=== PATIENT | female | born 1945 | race Caucasian/White ===

== ENCOUNTER 2016-11-25 18:37 | Emergency (ER) | payer BC, OTHER, MEDICARE ==
[~2016-11-25 18:37] MED LIST: ALBUTEROL HFA6.7 GM IH; ALBUTEROL S3 ML/VIAL NEB; ALBUTEROL2.5 MG/0.5 NEB; ASPIR 8181 MG PO; CELEXA40 MG PO; COZAAR100 MG PO; DITROPAN XL5 MG PO; GLUCOTROL5 MG PO; HUMULIN 70100 UNIT/1 INJ; IPRAT-ALBUT 0.5-3 ML NEB; JANUVIA100 MG PO; LANTUS SOL100 UNIT/1 INJ; LANTUS100 UNIT/1 INJ; LEVAQUIN500 MG PO; LEVAQUIN750 MG PO; LIPITOR40 MG PO; MAGNESIUM OXID400 MG PO; NORCO 5-325 TA1 EACH PO; PREDNISONE10 MG PO; PREDNISONE20 MG PO; PROTONIX40 MG PO; SPIRIVA18 MCG IH; SYMBICORT 80-10.2 GM IH; SYMBICORT 80-41 PUFF IH; VENTOLIN HFA8 GM IH; VISTARIL25 MG PO; ZYRTEC10 MG PO
== END 2016-11-25 22:48 | disposition home or self-care (01) ==
LOC: ER 18:37
DX: J44.9 Chronic obstructive pulmonary disease, unspecified (principal); E11.9 Type 2 diabetes mellitus without complications; I10 Essential (primary) hypertension; Z90.49 Acquired absence of other specified parts of digestive tract; Z87.891 Personal history of nicotine dependence; Z98.51 Tubal ligation status; Z87.442 Personal history of urinary calculi; Z79.84 Long term (current) use of oral hypoglycemic drugs; Z79.899 Other long term (current) drug therapy
CPT/HCPCS: 36415; 96374